=== PATIENT | male | born 1985 | race Two or more races ===

== ENCOUNTER 2018-05-17 05:12 | Emergency (ER) | payer MEDICAID ==
[~2018-05-17] VITALS: Ht 162.6 cm; Wt 77.1 kg
[~2018-05-17 05:12] MED LIST: METFORMIN HCL500 M1 ORAL
[2018-05-17 05:21] VITALS: BP 140/102
--- NOTE | 2018-05-17 05:22 | Emergency Room Report ---
History of Present Illness General Chief Complaint: Abdominal Pain Source: Patient Present Illness HPI This 32-year-old male with a history diabetes. Also history of kidney stone. He presents with chief complaint of right flank pain. Onset was acute and occurred about 3 hours ago. Pain is severe. Rating down the groin. Going to the back. It is 10 out of 10. He has nausea and vomiting secondary to the pain. No fever chills were no hematuria. Nothing made it better. Nothing made it worse. Allergies: Coded Allergies: No Known Allergies (Unverified , 05/17/18) Patient History Past Medical History: see triage record, old chart reviewed, DM Past Surgical History: none Pertinent Family History: none Social History: Reports: alcohol use - Social; Denies: smoking Immunizations: other Reviewed Nursing Documentation: PMH: Agreed; PSxH: Agreed Nursing Documentation-PMH Past Medical History: No History, Except For Hx Diabetes: Yes Review of Systems Eye: Denies: eye pain, blurred vision ENT: Denies: ear pain, nose congestion, throat swelling Respiratory: Denies: cough, shortness of breath Cardiovascular: Denies: chest pain, palpitations Gastrointestinal: Reports: abdominal pain; Denies: diarrhea, nausea, vomiting Musculoskeletal: Denies: back pain, joint pain Skin: Denies: rash Neurological: Denies: headache, numbness Endocrine: Denies: increased thirst, increased urine Hematologic/Lymphatic: Denies: easy bruising All Other Systems: negative except mentioned in HPI Physical Exam Vital Signs Date Time Temp Pulse Resp B/P (MAP) Pulse Ox O2 Delivery O2 Flow Rate FiO2 05/17/18 05:05 98.2 100 18 121/80 98 Room Air vvitals normal Sp02 EP Interpretation: reviewed, normal General Appearance: well appearing, no apparent distress, alert Head: normocephalic, atraumatic Eyes: bilateral eye PERRL, bilateral eye EOMI ENT: hearing grossly normal, normal pharynx Neck: full range of motion, supple, no meningismus Respiratory: chest non-tender, lungs clear, normal breath sounds Cardiovascular #1: regular rate, rhythm, no murmur Gastrointestinal: normal bowel sounds, non tender, no mass, no organomegaly, no bruit, non-distended Musculoskeletal: back normal, gait/station normal, normal range of motion Psychiatric: mood/affect normal Skin: warm/dry Medical Decision Making Diagnostic Impression: Primary Impression: Renal colic on right side Additional Impression: Hyperglycemia due to type 2 diabetes mellitus Qualified Codes: E11.65 - Type 2 diabetes mellitus with hyperglycemia ER Course Patient presents with right flank pain and has hematuria. CT scan showed right hydronephrosis. He does have bilateral intrarenal calculi. Most likely passed a kidney stone. No evidence of any obstruction or infection. Pain is better. We'll discharge home. Lab Results Impression labs unremarkable CT/MRI/US Diagnostic Results CT/MRI/US Diagnostic Results : Imaging Test Ordered: CT abdomen and pelvis Impression Read by radiologist. No ureteral stone. Bilateral kidney stone. Mild right hydronephrosis. Last Vital Signs Date Time Temp Pulse Resp B/P (MAP) Pulse Ox O2 Delivery O2 Flow Rate FiO2 05/17/18 05:05 98.2 100 18 121/80 98 Room Air Status: improved Disposition: HOME, SELF-CARE Condition: Stable Scripts Ibuprofen* (MOTRIN*) 600 Mg Tablet 600 MG ORAL THREE TIMES A DAY, #30 TAB 0 Refills Prov: Bradley Alcantar MD 05/17/18 Hydrocodone/Acetaminophen 5-325* (HYDROCODONE/ACETAMINOPHEN 5-325*) 1 Each Tablet 1 TAB ORAL Q6H PRN for For Pain, #10 TAB 0 Refills Prov: Bradley Alcantar MD 05/17/18 Additional Instructions: Increase fluids. Follow-up with your doctor in 7 days. Return if symptom worsen. Bradley Alcantar MD May 17, 2018 05:22
[2018-05-17] MEDS ORDERED: Morphine Sulfate 4mg/ml Inj (IV/IM USE ONLY) IVP ONE ×2 (05:30→06:00)
[2018-05-17] MEDS ORDERED: Ketorolac 30mg Inj IV ONE (05:30)
[2018-05-17 05:35] LABS: APPEARANCE,URINE CLEAR; BILIRUBIN, URINE NEGATIVE (NEGATIVE); COLOR,URINE PALE YELLOW; GLUCOSE, URINE (UA) 1+ (NEGATIVE); KETONES,URINE NEGATIVE (NEGATIVE); LEUKOCYTE ESTERASE ,URINE NEGATIVE (NEGATIVE); NITRITE,URINE NEGATIVE (NEGATIVE); PH,URINE 7 (4.5-8.0); PROTEIN,URINE NEGATIVE (NEGATIVE); UROBILINOGEN,URINE NORMAL MG/DL (0.0-1.0)
[2018-05-17 05:41] LABS: BASOPHILS % (AUTO) 2.4 % (0.0-2.0); EOSINOPHILS % (AUTO) 0.5 % (0.0-3.0); HEMATOCRIT 44.5 % (42.0-52.0); HEMOGLOBIN 15.1 G/DL (14.2-18.0); LYMPHOCYTES % (AUTO) 41.3 % (20.0-45.0); MEAN CORPUSCULAR VOLUME 89 FL (80-99); MONOCYTES % (AUTO) 6.4 % (1.0-10.0); NEUTROPHILS % (AUTO) 49.4 % (45.0-75.0); PLATELET COUNT 317 K/UL (150-450); RED BLOOD COUNT 4.99 M/UL (4.70-6.10); RED CELL DISTRIBUTION WIDTH 11.9 % (11.6-14.8); WHITE BLOOD COUNT 6.6 K/UL (4.8-10.8)
[2018-05-17 05:44] LABS: ANION GAP 12 mmol/L (5-15); BLOOD UREA NITROGEN 8 mg/dL (7-18); CALCIUM 8.7 MG/DL (8.5-10.1); CARBON DIOXIDE 25 MMOL/L (21-32); CHLORIDE 100 MMOL/L (98-107); CREATININE 0.9 MG/DL (0.55-1.30); POTASSIUM 3.7 MMOL/L (3.5-5.1); SODIUM 137 MMOL/L (136-145)
[2018-05-17 05:49] LABS: ALANINE AMINOTRANSFERASE 67 U/L (12-78); ALBUMIN 3.9 G/DL (3.4-5.0); ALKALINE PHOSPHATASE 123 U/L (46-116); ASPARTATE AMINO TRANSFERASE 52 U/L (15-37); BILIRUBIN,TOTAL 0.4 MG/DL (0.2-1.0)
[2018-05-17 06:23] VITALS: BP 128/90
[2018-05-17] MEDS ORDERED: IBUPROFEN600 MG ORAL (06:30)
[2018-05-17] MEDS ORDERED: HYDROCODON-ACE1 EA15 ORAL (06:30)
[2018-05-17] MEDS ORDERED: HYDROmorphone 1mg/ml Carpuject IVP ONE (06:30)
[2018-05-17 06:52] VITALS: BP 128/90
--- NOTE | 2018-05-17 09:23 | Diagnostic Imaging Report ---
Indication: Abdominal pain Technique: Continuous helical transaxial imaging of the abdomen and pelvis was obtained from the lung bases to the pubic symphysis. No intravenous contrast was administered. Coronal 2-D reformats were also obtained. Automatic Exposure Control was utilized. Total Dose length Product (DLP): 825.[address] Dose Index Volume (CTDIvol): 15.23 mGy Comparison: 11/30/2011 Findings: The lung bases are clear. There is a small hiatal hernia. The liver is diffusely hypodense consistent with fatty infiltration. There are multiple nonobstructive stones within both kidneys. There is mild right hydronephrosis. Urinary bladder is unremarkable. There is no obstructing stone. Appendix is normal. Accessory spleen noted. Gallbladder is mildly distended. Diverticula noted in the colon. Prostate calcifications are present. IMPRESSION: Minimal right hydronephrosis. Query possibility of a recently passed stone or mild pyelonephritis. Correlate clinically. Multiple nonobstructive stones within both kidneys. Fatty liver. Hiatal hernia. Accessory spleen Diverticulosis of the colon. [facility] has communicated the preliminary results to the Emergency Department. Their findings are largely concordant with this report. The CT scanner at [facility] is accredited by the [employer] and the scans are performed using dose optimization techniques as appropriate to a performed exam including Automatic Exposure control.
== END 2018-05-17 06:53 | disposition home or self-care (01) ==
LOC: EDBD 05:12 → EMR 05:50
DX: N13.2 Hydronephrosis with renal and ureteral calculous obstruction (principal); E11.65 Type 2 diabetes mellitus with hyperglycemia; K76.0 Fatty (change of) liver, not elsewhere classified; K44.9 Diaphragmatic hernia without obstruction or gangrene; K57.30 Diverticulosis of large intestine without perforation or abscess without bleeding
CPT/HCPCS: 36415; 74176; 80053; 81003; 83690; 85025; 96361; 96374; 96375; 96376; 99284; J1170; J1885; J2270; J2405

== ENCOUNTER 2019-01-29 18:57 | Emergency (ER) | payer MEDICAID ==
[~2019-01-29] VITALS: Ht 175.3 cm; Wt 90.7 kg
[~2019-01-29 18:57] MED LIST changes: +HYDROCODON-ACE1 EA15 ORAL; +IBUPROFEN600 MG ORAL
[2019-01-29 19:01] VITALS: BP 147/103
--- NOTE | 2019-01-29 19:08 | NUR ---
ER Nurse Note: Pt BIBA 24 c/o ETOH consumption. Per EMS, pt is asleep, with hiccups, pupils equal round and reactive. BS taken , 309. IV establshed by EMS; 500NS given in route. Will continue to motnior.
[2019-01-29 19:23] LABS: BASOPHILS % (AUTO) 1.9 % (0.0-2.0); EOSINOPHILS % (AUTO) 0.1 % (0.0-3.0); HEMATOCRIT 36.5 % (42.0-52.0); HEMOGLOBIN 11.9 G/DL (14.2-18.0); LYMPHOCYTES % (AUTO) 40.4 % (20.0-45.0); MEAN CORPUSCULAR VOLUME 85 FL (80-99); MONOCYTES % (AUTO) 6.8 % (1.0-10.0); NEUTROPHILS % (AUTO) 50.9 % (45.0-75.0); PLATELET COUNT 401 K/UL (150-450); RED CELL DISTRIBUTION WIDTH 15.6 % (11.6-14.8); WHITE BLOOD COUNT 7.7 K/UL (4.8-10.8)
--- NOTE | 2019-01-29 19:37 | NUR ---
ER Nurse Note: All orders completed per ERMD orders. Pt back from radiology; awaiting results. Pt calm, asleep, no signs of distress. All safety measures met; will continue to montior.
[2019-01-29 19:48] LABS: ANION GAP 11 mmol/L (5-15); BLOOD UREA NITROGEN 6 mg/dL (7-18); CALCIUM 8.2 MG/DL (8.5-10.1); CARBON DIOXIDE 25 MMOL/L (21-32); CHLORIDE 105 MMOL/L (98-107); CREATININE 0.8 MG/DL (0.55-1.30); POTASSIUM 3.4 MMOL/L (3.5-5.1); SODIUM 141 MMOL/L (136-145)
[2019-01-29 19:53] LABS: ALANINE AMINOTRANSFERASE 48 U/L (12-78); ALBUMIN 3.5 G/DL (3.4-5.0); ALKALINE PHOSPHATASE 121 U/L (46-116); ASPARTATE AMINO TRANSFERASE 51 U/L (15-37); BILIRUBIN,TOTAL 0.2 MG/DL (0.2-1.0)
--- NOTE | 2019-01-29 19:54 | Emergency Room Report ---
History of Present Illness General Chief Complaint: Alcohol Intoxication Source: Family Member, EMS (Braydon Lam MD) Present Illness HPI 33-year-old male presents ED for evaluation. Brought in by EMS. Mother called 911 as patient was found sleeping in car today. Appears to be altered. Has history of alcohol use. No reported drug use. Accu-Chek in the 300s. Mother states patient has a history of diabetes. Patient unable to provide any additional history at this time. No other signs of distress upon arrival. No other aggravating relieving factors. No other associated symptoms (Braydon Lam MD) Allergies: Coded Allergies: No Known Allergies (Unverified , 05/17/18) UNABLE TO ASSESS (Unverified , 01/29/19) Patient History Past Medical History: DM Past Surgical History: none Pertinent Family History: none Social History: Reports: alcohol use; Denies: smoking, drug use Immunizations: UTD Reviewed Nursing Documentation: PMH: Agreed; PSxH: Agreed (Braydon Lam MD) Nursing Documentation-PMH Past Medical History Deferred: Pt Cognitively Impaired Hx Diabetes: Yes (Braydon Lam MD) Review of Systems All Other Systems: limited (Braydon Lam MD) Physical Exam Vital Signs Date Time Temp Pulse Resp B/P (MAP) Pulse Ox O2 Delivery O2 Flow Rate FiO2 01/29/19 18:54 98.2 113 18 147/103 (118) 95 Room Air Sp02 EP Interpretation: reviewed, normal General Appearance: other - lethargic Head: normocephalic Eyes: bilateral eye normal inspection, bilateral eye PERRL ENT: normal ENT inspection Neck: normal inspection Respiratory: chest non-tender, lungs clear, normal breath sounds, speaking full sentences Cardiovascular #1: regular rate, rhythm, no edema Gastrointestinal: normal bowel sounds, non tender, soft, non-distended, no guarding, no rebound Rectal: deferred Genitourinary: no CVA tenderness Musculoskeletal: normal inspection Neurologic: other - intoxicated Psychiatric: other - intoxicated Skin: no rash Lymphatic: normal inspection (Braydon Lam MD) Medical Decision Making Diagnostic Impression: Primary Impression: Acute alcoholic intoxication Qualified Codes: F10.920 - Alcohol use, unspecified with intoxication, uncomplicated ER Course Sign out received from Dr. [place] Reevaluation 11:46 PM, patient was seen with a normal gait, ambulate to the bathroom without any issues, patient is no longer slurring speech, patient can be dispositioned home with return precautions Laboratory Tests Test 01/29/19 19:10 01/29/19 19:35 White Blood Count 7.7 K/UL (4.8-10.8) Red Blood Count 4.30 M/UL (4.70-6.10) L Hemoglobin 11.9 G/DL (14.2-18.0) L Hematocrit 36.5 % (42.0-52.0) L Mean Corpuscular Volume 85 FL (80-99) Mean Corpuscular Hemoglobin 27.6 PG (27.0-31.0) Mean Corpuscular Hemoglobin Concent 32.6 G/DL (32.0-36.0) Red Cell Distribution Width 15.6 % (11.6-14.8) H Platelet Count 401 K/UL (150-450) Mean Platelet Volume 4.8 FL (6.5-10.1) L Neutrophils (%) (Auto) 50.9 % (45.0-75.0) Lymphocytes (%) (Auto) 40.4 % (20.0-45.0) Monocytes (%) (Auto) 6.8 % (1.0-10.0) Eosinophils (%) (Auto) 0.1 % (0.0-3.0) Basophils (%) (Auto) 1.9 % (0.0-2.0) Sodium Level 141 MMOL/L (136-145) Potassium Level 3.4 MMOL/L (3.5-5.1) L Chloride Level 105 MMOL/L (98-107) Carbon Dioxide Level 25 MMOL/L (21-32) Anion Gap 11 mmol/L (5-15) Blood Urea Nitrogen 6 mg/dL (7-18) L Creatinine 0.8 MG/DL (0.55-1.30) Estimate Glomerular Filtration Rate > 60 mL/min (>60) Glucose Level 333 MG/DL (74-106) H Calcium Level 8.2 MG/DL (8.5-10.1) L Total Bilirubin 0.2 MG/DL (0.2-1.0) Aspartate Amino Transferase (AST) 51 U/L (15-37) H Alanine Aminotransferase (ALT) 48 U/L (12-78) Alkaline Phosphatase 121 U/L (46-116) H Total Protein 6.9 G/DL (6.4-8.2) Albumin 3.5 G/DL (3.4-5.0) Globulin 3.4 g/dL Albumin/Globulin Ratio 1.0 (1.0-2.7) Salicylates Level 2.0 ug/mL (2.8-20) L Acetaminophen Level < 2 MCG/ML (10-30) L Serum Alcohol 428 mg/dL Acetone Level Negative (NEGATIVE) Urine Opiates Screen Negative (NEGATIVE) Urine Barbiturates Screen Negative (NEGATIVE) Phencyclidine (PCP) Screen Negative (NEGATIVE) Urine Amphetamines Screen Negative (NEGATIVE) Urine Benzodiazepines Screen Negative (NEGATIVE) Urine Cocaine Screen Negative (NEGATIVE) Urine Marijuana (THC) Screen Negative (NEGATIVE) (Rudy Arora MD) CT/MRI/US Diagnostic Results CT/MRI/US Diagnostic Results : Imaging Test Ordered: CT Head Impression no acute process (Braydon Lam MD) Last Vital Signs Date Time Temp Pulse Resp B/P (MAP) Pulse Ox O2 Delivery O2 Flow Rate FiO2 01/29/19 19:01 98.2 110 18 147/103 95 Room Air (Braydon Lam MD) Disposition: HOME, SELF-CARE Condition: Stable Referrals: [facility] Patient Instructions: Alcohol Intoxication, [id number] Additional Instructions: The patient was provided with discharge instructions, notified to follow-up with a primary care doctor and or specialist in the next 24-48 hours, and to return to the ED if they have worsening of their symptoms. Please note that this report is being documented using As Seen on [employer] technology. This can lead to erroneous entry secondary to incorrect interpretation by the dictating instrument. Braydon Lam MD Jan 29, 2019 19:54 Rudy Arora MD Jan 29, 2019 23:46
[2019-01-29 20:58] VITALS: BP 136/98
--- NOTE | 2019-01-29 21:12 | NUR ---
ER Nurse Note: Pt ambulated to restroom; no falls. Pt slurred speech; asleep, will continue to monitor.
--- NOTE | 2019-01-29 23:36 | NUR ---
ER Nurse Note: Pt asleep, unable to respond, VSS, RA, no signs of distress. Pt no ready for discharge. Unsteady gait. Will continue to montior.
[2019-01-29 23:37] VITALS: BP 140/92
[2019-01-29 23:50] VITALS: BP 140/92
--- NOTE | 2019-01-29 23:50 | NUR ---
ER Nurse Note: Pt seen, treated, medically cleared for discharge by ERMD. Discharge instuctions given with repeat verbalizatio. Emphasized to follow up with primay care provider. All orders completed per ERMD orders. Pt a&ox4, VSS, no signs of distress. ID band removed. IV removed; site clean and bandaged. All questions answered per p's questions. Pt left with all belongings, left with own transportation.
--- NOTE | 2019-01-30 08:43 | Diagnostic Imaging Report ---
Indications: Altered mental status Technique: Spiral acquisitions obtained through the brain. Angled axial and coronal 5 x 5 mm slices were reconstructed. Total dose length product 2807.58 mGycm. CTDI vol(s) 70.38,70.38 mGy. Dose reduction achieved using automated exposure control Comparison: None. Findings: There is some image degradation due to motion artifact, despite repeated acquisitions. No acute intracranial hemorrhage or edema, mass effect, nor midline shift. Normal size ventricles and extra-axial CSF spaces. Normal shukla-white differentiation. Intact calvarium. Visualized orbits and sinuses are unremarkable Impression: Negative This agrees with the preliminary interpretation provided overnight by Dr. Alex The CT scanner at [facility] is accredited by the [employer] and the scans are performed using protocols designed to limit radiation exposure to as low as reasonably achievable to attain images of sufficient resolution adequate for diagnostic evaluation.
== END 2019-01-29 23:50 | disposition home or self-care (01) ==
LOC: EDBD 18:57 → EMR 19:12
DX: F10.920 Alcohol use, unspecified with intoxication, uncomplicated (principal); E11.9 Type 2 diabetes mellitus without complications; Y90.8 Blood alcohol level of 240 mg/100 ml or more
CPT/HCPCS: 36415; 70450; 80053; 80307; 80329; 82009; 85025; 96360; 99284